=== PATIENT | male | born 1980 | race African-American/Black ===

== ENCOUNTER 2020-11-09 19:16 | Emergency (ER) | payer BC ==
[~2020-11-09] VITALS: Ht 167.6 cm; Wt 95.3 kg
[~2020-11-09 19:16] MED LIST: ERYTHROMYCIN E3.5 G2 OPHTHALMIC; OMEPRAZOLE 20 M20 M1 PO
[2020-11-09 19:18] VITALS: BP 137/88
[2020-11-09] MEDS ORDERED: CARAFATE1 GM PO (19:53)
[2020-11-09] MEDS ORDERED: PROTONIX40 MG PO (19:53)
[2020-11-09] MEDS ORDERED: CARAFATE1 GM/10 ML PO (20:11)
== END 2020-11-09 20:18 | disposition home or self-care (01) ==
LOC: ER 19:16
DX: K21.9 Gastro-esophageal reflux disease without esophagitis (principal); Z76.0 Encounter for issue of repeat prescription; F17.210 Nicotine dependence, cigarettes, uncomplicated; Z88.1 Allergy status to other antibiotic agents